=== PATIENT | female | born 1945 ===

== ENCOUNTER 2017-09-15 10:25 | Emergency (ER) | payer MEDICARE ==
[2017-09-15 10:26] VITALS: BMI 26.7
[2017-09-15 12:53] LABS: BASO # 0.1 K/uL (0.0-0.2); BASO % 0.9 % (0.0-2.0); EOS % 0.9 % (0.0-4.0); HEMATOCRIT 25.2 % (34.0-47.0); LYMPH # 2.2 K/uL (1.0-4.3); LYMPH % 41.6 % (20.0-40.0); MEAN CELL VOLUME 65.6 fl (81.0-99.0); MEAN CORPUSCULAR HEMOGLOBIN 20.7 pg (27.0-31.0); MEAN CORPUSCULAR HGB CONC 31.5 g/dL (33.0-37.0); MEAN PLATELET VOLUME 7.7 fl (7.2-11.7); MONO # 0.3 K/uL (0.0-0.8); MONO % 5.7 % (0.0-10.0); NEUT # 2.7 K/uL (1.8-7.0); NEUT % 50.9 % (50.0-75.0); NRBC % 0.1 % (0.0-0.0); RED CELL DISTRIBUTION WIDTH 16.6 % (11.5-14.5); WHITE BLOOD COUNT 5.4 K/uL (4.8-10.8)
[2017-09-15 13:01] LABS: ALB/GLOB RATIO 1.5 (1.0-2.1); ALKALINE PHOSPHATASE 79 U/L (38-126); ALT/SGPT 34 U/L (9-52); AST/SGOT 28 U/L (14-36); BILIRUBIN,TOTAL 0.3 mg/dl (0.2-1.3); BLOOD UREA NITROGEN 25 mg/dl (7-17); CALCIUM 9.2 mg/dL (8.4-10.2); CARBON DIOXIDE 26 mmol/L (22-30); CHLORIDE 106 mmol/L (98-107); GFR AFRICAN-AMERICAN > 60; GLUCOSE,RANDOM 96 mg/dL (65-105); POTASSIUM 3.8 MMOL/L (3.6-5.0); SODIUM 141 mmol/l (132-148)
[2017-09-15 13:04] LABS: PARTIAL THROMBOPLASTIN TIME 25.2 Seconds (25.6-37.1)
--- NOTE | 2017-09-15 13:34 | US ---
HISTORY: Left lower extremity pain 3 days duration PRIORS: None. FINDINGS: 2-D, color and duplex Doppler analysis of the lower extremity venous circulation using routine protocol from the femoral veins through the popliteal veins. Venous compressibility: Normal. Flow and augmentation patterns: Normal. Visualized veins upper third of calf: Normal. Rodriguez cyst: None. IMPRESSION: No sonographic or Doppler evidence for DVT in left lower extremity.
--- NOTE | 2017-09-15 13:42 | ED PDOC ---
HPI: General Adult Time Seen by Provider: 09/15/17 11:00 Chief Complaint (Nursing): Lower Extremity Problem/Injury History Per: Patient Additional Complaint(s): Pt. states for the past 3 days she's had L calf pain and swelling. She was seen today by Dr. Gallo and instructed to come to ED for venous duplex US to r/o DVT. Denies trauma, rash, fever, SOB, palpitations, chest pain, hx of DVT, cough , recent prolonged immobilization. Past Medical History Reviewed: Historical Data, Nursing Documentation, Vital Signs Vital Signs: Last Vital Signs Temp 97.7 F 09/15/17 15:59 Pulse 78 09/15/17 15:59 Resp 19 09/15/17 15:59 BP 128/76 09/15/17 15:59 Pulse Ox 98 09/15/17 15:59 - Medical History PMH: CVA (12/2015), HTN - Family History Family History: States: No Known Family Hx - Home Medications Home Medications: Ambulatory Orders Medication Instructions Recorded Atorvastatin [Lipitor] 80 mg PO DAILY 01/19/17 Clopidogrel [Plavix] 75 mg PO DAILY 01/19/17 clonazePAM [Klonopin] 0.5 mg PO HS PRN 01/19/17 Alendronate [Fosamax] 70 mg PO FR 09/15/17 Multivitamin [Multi-Vitamin Daily] 1 tab PO DAILY 09/15/17 PARoxetine [Paxil] 20 mg PO DAILY 09/15/17 - Allergies Allergies/Adverse Reactions: Allergies Allergy/AdvReac Type Severity Reaction Status Date / Time No Known Allergies Allergy Verified 09/15/17 11:00 Review of Systems ROS Statement: Except As Marked, All Systems Reviewed And Found Negative Musculoskeletal: Positive for: Leg Pain Physical Exam - Reviewed Nursing Documentation Reviewed: Yes Vital Signs Reviewed: Yes - Physical Exam Appears: Positive for: Well, Non-toxic, No Acute Distress Head Exam: Positive for: ATRAUMATIC, NORMAL INSPECTION, NORMOCEPHALIC Skin: Positive for: Normal Color, Warm. Negative for: Rash Eye Exam: Positive for: EOMI, Normal appearance, PERRL ENT: Positive for: Normal ENT Inspection Neck: Positive for: Normal, Painless ROM Cardiovascular/Chest: Positive for: Regular Rate, Rhythm Respiratory: Positive for: CNT, Normal Breath Sounds Pulses-Dorsalis Pedis (L): 2+ Pulses-Dorsalis Pedis (R): 2+ Gastrointestinal/Abdominal: Positive for: Normal Exam, Bowel Sounds, Soft. Negative for: Tenderness Back: Positive for: Normal Inspection Rectal: Positive for: Normal Exam, Rectal Tone Is: (intact), Other (Peachy RN present as flow match sofa cutter during rectal exam. ). Negative for: Black Stool, Blood Streaked Stool, Hemorrhoids, Mass, Tenderness Extremity: Positive for: Calf Tenderness (L calf tenderness and mild swelling; negative Juan Pablo's sign) Neurologic/Psych: Positive for: Alert, Oriented. Negative for: Aphasia, Facial Droop - Laboratory Results Result Diagrams: 09/15/17 12:45 09/15/17 12:45 - ECG O2 Sat by Pulse Oximetry: 96 - Progress ED Course And Treament: Case d/w Dr. Mcnulty who states her last HgB that he has from her was from and was 11.5. He requests that pt. be admitted. Case d/w Dr. Raya, hospitalist, who states pt. does not meet criteria for admission as she is asymptomatic. Case d/w Dr. Mcnulty and states pt. can f/u in his office tomorrow. Case d/w Dr. Tran prior to discharge. Pt. and pt.'s son informed of plan and agrees. Disposition - Clinical Impression Clinical Impression: Anemia, Leg pain - Patient ED Disposition Is Patient to be Admitted: No - Disposition Referrals: Rudy Mcnulty MD [Family Provider] - [facility] [Outside] Disposition: Routine/Home Disposition Time: 15:30 Condition: STABLE Additional Instructions: FOLLOW UP WITH DR. MCNULTY TOMORROW WITHOUT FAIL. Instructions: Anemia (ED), Leg Pain (ED) Forms: [place] ([place] Citizen) Print Language: [place]
[2017-09-15 16:00] VITALS: BP 128/76; PULSE 78; RESP 19; TEMP 97.7
[2017-09-15 19:45] VITALS: O2SAT 96
--- NOTE | 2017-09-16 07:37 | CARD ---
APPROVED REPORT EKG Measurement Heart [id number] [id number] <Conclusion> Sinus rhythm with 1st degree AV block Otherwise normal ECG
== END 2017-09-15 16:01 | disposition home or self-care (01) ==
LOC: H.ER 10:25
DX: M79.605 Pain in left leg (principal); D64.9 Anemia, unspecified; I10 Essential (primary) hypertension; Z86.73 Personal history of transient ischemic attack (TIA), and cerebral infarction without residual deficits
CPT/HCPCS: 80053; 83880; 85025; 85610; 85730; 93005; 93971; 99282; G0328

== ENCOUNTER 2018-01-11 10:21 | Observation (INO) | payer MEDICARE ==
[2018-01-11 10:21] VITALS: BMI 21.2
[2018-01-11 11:28] LABS: BASO % 0.7 % (0.0-2.0); EOS # 0.1 K/uL (0.0-0.7); EOS % 1.2 % (0.0-4.0); HEMOGLOBIN 12.6 g/dL (12.0-16.0); LYMPH # 2.6 K/uL (1.0-4.3); LYMPH % 51.4 % (20.0-40.0); MEAN CELL VOLUME 81.2 fl (81.0-99.0); MEAN CORPUSCULAR HEMOGLOBIN 27.5 pg (27.0-31.0); MEAN CORPUSCULAR HGB CONC 33.9 g/dL (33.0-37.0); MEAN PLATELET VOLUME 7.6 fl (7.2-11.7); MONO # 0.4 K/uL (0.0-0.8); MONO % 8.6 % (0.0-10.0); NEUT # 1.9 K/uL (1.8-7.0); NEUT % 38.1 % (50.0-75.0); RBC 4.59 Mil/uL (3.80-5.20); WHITE BLOOD COUNT 5.1 K/uL (4.8-10.8)
--- NOTE | 2018-01-11 11:33 | RAD ---
HISTORY: Code Stroke COMPARISON: Comparison chest dated 01/19/2017. FINDINGS: LUNGS: Suspect minimal bibasilar PLEURA: No significant pleural effusion identified, no pneumothorax apparent. CARDIOVASCULAR: Heart size is upper limits of normal/borderline enlarged. Aorta is slightly ectatic and uncoiled with calcification of the aortic knob. Re- demonstrated is a small cylindrical shaped radiopaque density overlying the right cardiac silhouette unchanged from prior study OSSEOUS STRUCTURES: Mild multilevel degenerative spondylosis of the thoracic spine. VISUALIZED UPPER ABDOMEN: Normal. OTHER FINDINGS: None. IMPRESSION: Atelectasis suspect minimal bibasilar atelectasis
--- NOTE | 2018-01-11 11:40 | CT ---
PROCEDURE: CT HEAD WITHOUT CONTRAST. HISTORY: Right leg numbness. COMPARISON: Comparison made with CT scan brain 11/15/2016. TECHNIQUE: Axial computed tomography images were obtained through the head/brain without intravenous contrast. Radiation dose: Total exam DLP = 718.65 mGy-cm. This CT exam was performed using one or more of the following dose reduction techniques: Automated exposure control, adjustment of the mA and/or kV according to patient size, and/or use of iterative reconstruction technique. FINDINGS: HEMORRHAGE: No acute parenchymal, subarachnoid or extra-axial hemorrhage. BRAIN: Re- demonstrated is a large wedge-shaped area of partially cystic encephalomalacia left posterior frontoparietal and left posterior temporal regions consistent with chronic left MCA territory branch infarct. Overall the appearance of the infarct is on change from prior exam. There is also mild diffuse/ confluent chronic white matter ischemic changes with scattered with chronic appearing subcortical white matter ischemic changes. . Additionally, there appear to be a few scattered chronic bilateral basal nuclei lacunar type infarcts as well. Note that the possibility of a small hyperacute infarct cannot be excluded. There is ex vacuo dilatation of the left lateral ventricle particularly the posterior body, atrium and to a lesser degree temporal horn related to at aforementioned chronic infarct. . Mild -moderate generalized volume loss not withstanding above-mentioned infarct and associated ex vacuo dilatation of the left lateral ventricle. VENTRICLES: No obstructive hydrocephalus. CALVARIUM: There are no acute calvarial fractures. PARANASAL SINUSES: Unremarkable as visualized. No significant inflammatory changes. MASTOID AIR CELLS: Unremarkable as visualized. No inflammatory changes. OTHER FINDINGS: None. IMPRESSION: No acute intracranial hemorrhage. Stable larger old chronic left MCA a territory branch infarct with mild ex vacuo dilatation of the left lateral ventricle as detailed above. Note that the possibility of a superimposed small acute infarct cannot be excluded based on this study. Clinical correlation recommended. Mild chronic white matter ischemic changes. Additionally, there also appear to be a few small chronic appearing bilateral basal nuclei lacunar type infarcts. Mild moderate generalized volume loss.
[2018-01-11 11:44] LABS: ALB/GLOB RATIO 1.3 (1.0-2.1); ALBUMIN 4.1 g/dL (3.5-5.0); ALT/SGPT 28 U/L (9-52); AST/SGOT 40 U/L (14-36); BLOOD UREA NITROGEN 31 mg/dl (7-17); CALCIUM 9.2 mg/dL (8.4-10.2); GFR AFRICAN-AMERICAN > 60; GFR NON-AFRICAN AMERICAN > 60; HDL CHOLESTEROL 48 MG/DL (30-70)
[2018-01-11 11:52] LABS: PARTIAL THROMBOPLASTIN TIME 26.5 Seconds (25.6-37.1); PROTHROMBIN TIME 10.7 Seconds (9.8-13.1)
[2018-01-11 11:55] LABS: LDL CHOLESTEROL 115 mg/dL (0-129)
[2018-01-11] MEDS: Sodium Chloride 0.9% 1,000 ML IV SCH (12:02)
--- NOTE | 2018-01-11 12:56 | ED PDOC ---
HPI:STROKE - Time Time: 11:45 - Historian Historian: Patient, Family, Major Account Manager - Chief Complaint Chief Complaint: Numbness, Slurred speech, Mental status change, Confusion - Onset Date: 01/08/18 Onset: Hours (3+) - Timing Timing: Intermittent - Location Location: Difficult to localize Locate right:: Lower extremity - Severity of pain Maximum severity:: Moderate Severity Current: Moderate - TPA Positive for Contraindication: Yes Reason tPA is not being Administered: symptoms ongoing 3+ days - Notes: Notes:: 72yo female presents w son who states she has noted right leg numbness since thursday associated w headache and mild low back pain. Denies falls, chest pain, fever or abd pain. Also family notes lethargy and worsening confusion. Patient had a large stroke several years ago for which she has R sided weakness. Denies fever, vomiting. NIHSS Stroke Scale - Date/Time Evaluation Performed Date Performed: 01/11/18 Time Performed: 11:45 When Was NIHSS Performed: Baseline - How Severe is the Stroke Level of Consciousness: 0=Alert LOC to Questions: 0=Both comments correct LOC to commands: 0=Obeys both correctly Best Gaze: 0=Normal Visual: 0=No visual loss Facial: 0=Normal Motor Arm - Left: 0=No drift Motor Arm - Right: 1=Drift noted before 10 sec Motor Leg - Left: 0=No drift Motor Leg - Right: 1=Drift before 5 sec Limb Ataxia: 0=Absent Sensory: 1=Mild to moderate loss Best Language: 0=No aphasia Dysarthia: 0=Normal articulation Extinction & Inattention (Neglect): 0=Normal, no object Score: 3 Past Medical History Vital Signs: Last Vital Signs Temp 97 F L 01/11/18 10:23 Pulse 60 01/11/18 11:53 Resp 16 01/11/18 11:53 BP 131/75 01/11/18 11:53 Pulse Ox 99 01/11/18 11:53 - Medical History PMH: Anemia, CVA (12/2015), HTN - Family History Family History: States: Unknown Family Hx - Home Medications Home Medications: Ambulatory Orders Medication Instructions Recorded Atorvastatin [Lipitor] 80 mg PO DAILY 01/19/17 Clopidogrel [Plavix] 75 mg PO DAILY 01/19/17 clonazePAM [Klonopin] 0.5 mg PO HS PRN 01/19/17 PARoxetine [Paxil] 20 mg PO DAILY 09/15/17 Acetaminophen with Codeine 1 tab PO Q6H PRN 01/11/18 [Tylenol with Codeine #3 Tablet] - Allergies Allergies/Adverse Reactions: Allergies Allergy/AdvReac Type Severity Reaction Status Date / Time No Known Allergies Allergy Verified 09/15/17 11:00 - Laboratory Results Result Diagrams: 01/11/18 11:15 01/11/18 11:15 - ECG O2 Sat by Pulse Oximetry: 99 Medical Decision Making Medical Decision Making: Time: 11:31 Chest X-Ray FINDINGS: LUNGS: Suspect minimal bibasilar PLEURA: No significant pleural effusion identified, no pneumothorax apparent. CARDIOVASCULAR: Heart size is upper limits of normal/borderline enlarged. Aorta is slightly ectatic and uncoiled with calcification of the aortic knob. Re- demonstrated is a small cylindrical shaped radiopaque density overlying the right cardiac silhouette unchanged from prior study OSSEOUS STRUCTURES: Mild multilevel degenerative spondylosis of the thoracic spine. VISUALIZED UPPER ABDOMEN: Normal. OTHER FINDINGS: None. IMPRESSION: Atelectasis suspect minimal bibasilar atelectasis Time: 11:38 CT Head without Contrast FINDINGS: HEMORRHAGE: No acute parenchymal, subarachnoid or extra-axial hemorrhage. BRAIN: Re- demonstrated is a large wedge-shaped area of partially cystic encephalomalacia left posterior frontoparietal and left posterior temporal regions consistent with chronic left MCA territory branch infarct. Overall the appearance of the infarct is on change from prior exam. There is also mild diffuse/ confluent chronic white matter ischemic changes with scattered with chronic appearing subcortical white matter ischemic changes. . Additionally, there appear to be a few scattered chronic bilateral basal nuclei lacunar type infarcts as well. Note that the possibility of a small hyperacute infarct cannot be excluded. There is ex vacuo dilatation of the left lateral ventricle particularly the posterior body, atrium and to a lesser degree temporal horn related to at aforementioned chronic infarct. . Mild -moderate generalized volume loss not withstanding above-mentioned infarct and associated ex vacuo dilatation of the left lateral ventricle. VENTRICLES: No obstructive hydrocephalus. CALVARIUM: There are no acute calvarial fractures. PARANASAL SINUSES: Unremarkable as visualized. No significant inflammatory changes. MASTOID AIR CELLS: Unremarkable as visualized. No inflammatory changes. OTHER FINDINGS: None. IMPRESSION: No acute intracranial hemorrhage. Stable larger old chronic left MCA a territory branch infarct with mild ex vacuo dilatation of the left lateral ventricle as detailed above. Note that the possibility of a superimposed small acute infarct cannot be excluded based on this study. Clinical correlation recommended. Mild chronic white matter ischemic changes. Additionally, there also appear to be a few small chronic appearing bilateral basal nuclei lacunar type infarcts. Mild moderate generalized volume loss Disposition - Disposition
--- NOTE | 2018-01-11 13:17 | CARD ---
APPROVED REPORT EKG Measurement Heart [id number] <Conclusion> Sinus rhythm with 1st degree AV block Otherwise normal ECG
[2018-01-11] MEDS ORDERED: Acetaminophen-Codeine 300/30 mg Tab PO PRN (14:26)
[2018-01-11] MEDS ORDERED: Gadodiamide 287 MG/ML VIAL (15ML) IV ONE (14:41)
--- NOTE | 2018-01-11 16:25 | MRI ---
PROCEDURE: MRI lumbar spine 01/11/2018 HISTORY: Sciatica. COMPARISON: Comparison made with prior lumbar spine radiographs 08/18/2017 TECHNIQUE: Multiecho multiplanar sequences were performed through the lumbar spine with and without the use of intravenous contrast. . FINDINGS: No acute compression fractures no retropulsed fragments. The vertebral bodies exhibit normal stature. Vertebral bodies and facets normally aligned No evidence of abnormal enhancement within the disc spaces to suggest discitis osteomyelitis. No evidence of abnormal enhancement within or along the surfaces of the visualized lower thoracic spinal cord/conus or nerve roots of the cauda equina. Mild multilevel degenerative spondylosis. L1-2: Mild disc desiccation. Disc space height maintained. Minimal broad-based bulge of the posterior annulus is present. The facet joints also mildly hypertrophic. Central canal and exit foramina appear adequate. L2-3: There is mild disc desiccation. Minimal broad-based bulge of the posterior annulus is present and results in some flattening of the ventral surface of thecal sac. Overall central canal measured at midline is adequate. Facets are mildly hypertrophic. Central canal and exit foramina adequate. L3-4: There is mild disc desiccation. Disc space height relatively maintained. Small asymmetric disc bulge larger on the left than right with extension into the proximal inferior margins of both exit foramina more so on the left. There is flattening of the ventral surface of the thecal sac and mild left lateral recess narrowing. Slight posterior displacement of the nearly exiting left-sided intrathecal L4 nerve root. Central canal appears marginal to adequate. Facet joints are mildly hypertrophic. Exit foramina are also adequate. L4-5: There is mild age related disc desiccation. Disc space height maintained. Minimal broad-based bulge of the posterior annulus extends slightly into the proximal inferior margins of both exit foramina more so on the left side. The facets are hypertrophic. There is some flattening of the ventral surface of thecal sac however the overall central canal does appear adequate. Exit foramina are also adequate. L5-S1: There is mild age related disc desiccation and posterior disc space narrowing. Small central and bilateral disc protrusion with minimal inferior extension of disc material just to the right of midline over short distance dorsal to the superior right parasagittal core of the S1 segment. Disc also extends slightly into the proximal inferior margins of both exit foramina. Disc reaches the ventral surfaces of the thecal sac and right sided S1 nerve root just as it exits the thecal sac as well however the overall central canal is quite adequate. The facet joints are hypertrophic. Exit foramina are also adequate despite encroaching disc and overgrown facets. 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 OTHER FINDINGS: Note made of a distended urinary bladder. Parapelvic renal cyst left kidney with an extrarenal pelvis IMPRESSION: No acute fractures. Minor multilevel degenerative spondylosis as above.
--- NOTE | 2018-01-11 17:33 | CP.PCM.HP ---
History of Present Illness - History of Present Illness History of Present Illness: 72 yo female with history of CVA 2yrs ago came in complaining of pain on the right lower back region radiating to the back of the right leg since 3 days ago. Pain was on and off initiated when rising up from sitting position. There was also some mention of numbness associated with the pain but denied weakness. Over a year back, patient had CVA presenting with numbness of the left arm. Present on Admission - Present on Admission Any Indicators Present on Admission: No History of DVT/PE: No History of Uncontrolled Diabetes: No Urinary Catheter: No Decubitus Ulcer Present: No Review of Systems - Review of Systems All systems: reviewed and no additional remarkable complaints except (aside from those mentioned above, 12 point system review were negative by me) Past Patient History - Infectious Disease Hx of Infectious Diseases: None - Tetanus Immunizations Tetanus Immunization: Unknown - Past Medical History & Family History Past Family History: Reviewed and not pertinent - Past Social History Smoking Status: Never Smoked Alcohol: None Home Situation {Lives}: With Family - CARDIAC Hx Hypertension: Yes - PULMONARY Hx Respiratory Disorders: No - NEUROLOGICAL Hx Neurological Disorder: Yes HX Cerebrovascular Accident: Yes (dec 2015) - RENAL Hx Chronic Kidney Disease: No - ENDOCRINE/METABOLIC Hx Endocrine Disorders: No - HEMATOLOGICAL/ONCOLOGICAL Hx Anemia: Yes - INTEGUMENTARY Hx Dermatological Problems: No - MUSCULOSKELETAL/RHEUMATOLOGICAL Hx Musculoskeletal Disorders: No - GASTROINTESTINAL Other/Comment: bladder surgery - GENITOURINARY/GYNECOLOGICAL Hx Genitourinary Disorders: No - PSYCHIATRIC Hx Substance Use: No - SURGICAL HISTORY Hx Surgeries: Yes Other/Comment: valve closure. lt shoulder - ANESTHESIA Hx Anesthesia: Yes Hx Anesthesia Reactions: No Meds Allergies/Adverse Reactions: Allergies Allergy/AdvReac Type Severity Reaction Status Date / Time No Known Allergies Allergy Verified 09/15/17 11:00 Physical Exam - Constitutional Appears: No Acute Distress - Head Exam Head Exam: absent: ATRAUMATIC - Eye Exam Eye Exam: absent: Scleral icterus - ENT Exam ENT Exam: Mucous Membranes Moist - Neck Exam Neck exam: Negative for: Meningismus - Respiratory Exam Respiratory Exam: absent: Rhonchi, Wheezes, Respiratory Distress - Cardiovascular Exam Cardiovascular Exam: REGULAR RHYTHM, +S1, +S2 - GI/Abdominal Exam GI & Abdominal Exam: Soft. absent: Tenderness - Rectal Exam Rectal Exam: Deferred - Back Exam Back exam: paraspinal tenderness (tenderness on right paralumbar area) - Neurological Exam Neurological exam: Alert, Oriented x3 - Psychiatric Exam Psychiatric exam: Normal Affect - Skin Skin Exam: Dry, Intact Results - Vital Signs Recent Vital Signs: Last Vital Signs Temp 97 F L 01/11/18 10:23 Pulse 60 01/11/18 11:53 Resp 16 01/11/18 11:53 BP 131/75 01/11/18 11:53 Pulse Ox 99 01/11/18 13:28 - Labs Result Diagrams: 01/11/18 11:15 01/11/18 11:15 Labs: Laboratory Results - last 24 hr 01/11/18 01/11/18 01/11/18 11:05 11:15 11:15 WBC 5.1 RBC 4.59 Hgb 12.6 D Hct 37.3 MCV 81.2 D MCH 27.5 MCHC 33.9 RDW 19.0 H Plt Count 239 MPV 7.6 Neut % (Auto) 38.1 L Lymph % (Auto) 51.4 H [place] % (Auto) 8.6 Eos % (Auto) 1.2 Baso % (Auto) 0.7 Neut # (Auto) 1.9 Lymph # (Auto) 2.6 [place] # (Auto) 0.4 Eos # (Auto) 0.1 Baso # (Auto) 0.0 PT INR APTT Sodium 142 Potassium 3.8 Chloride 106 Carbon Dioxide 26 Anion Gap 14 BUN 31 H Creatinine 0.6 L Est GFR ( Amer) > 60 Est GFR (Non-Af Amer) > 60 POC Glucose (mg/dL) 99 Random Glucose 104 Hemoglobin A1c Calcium 9.2 Total Bilirubin 0.5 AST 40 H D ALT 28 Alkaline Phosphatase 61 Troponin I < 0.0120 Total Protein 7.1 Albumin 4.1 Globulin 3.1 Albumin/Globulin Ratio 1.3 Triglycerides 139 D Cholesterol 201 H LDL Cholesterol Direct 115 HDL Cholesterol 48 Blood Type Antibody Screen BBK History Checked 01/11/18 01/11/18 01/11/18 11:15 11:15 11:15 WBC RBC Hgb Hct MCV MCH MCHC RDW Plt Count MPV Neut % (Auto) Lymph % (Auto) [place] % (Auto) Eos % (Auto) Baso % (Auto) Neut # (Auto) Lymph # (Auto) [place] # (Auto) Eos # (Auto) Baso # (Auto) PT 10.7 INR 1.0 APTT 26.5 Sodium Potassium Chloride Carbon Dioxide Anion Gap BUN Creatinine Est GFR ( Amer) Est GFR (Non-Af Amer) POC Glucose (mg/dL) Random Glucose Hemoglobin A1c 6.2 Calcium Total Bilirubin AST ALT Alkaline Phosphatase Troponin I Total Protein Albumin Globulin Albumin/Globulin Ratio Triglycerides Cholesterol LDL Cholesterol Direct HDL Cholesterol Blood Type AB POSITIVE Antibody Screen Negative BBK History Checked Patient has bt 01/11/18 16:49 WBC RBC Hgb Hct MCV MCH MCHC RDW Plt Count MPV Neut % (Auto) Lymph % (Auto) [place] % (Auto) Eos % (Auto) Baso % (Auto) Neut # (Auto) Lymph # (Auto) [place] # (Auto) Eos # (Auto) Baso # (Auto) PT INR APTT Sodium Potassium Chloride Carbon Dioxide Anion Gap BUN Creatinine Est GFR ( Amer) Est GFR (Non-Af Amer) POC Glucose (mg/dL) 141 H Random Glucose Hemoglobin A1c Calcium Total Bilirubin AST ALT Alkaline Phosphatase Troponin I Total Protein Albumin Globulin Albumin/Globulin Ratio Triglycerides Cholesterol LDL Cholesterol Direct HDL Cholesterol Blood Type Antibody Screen BBK History Checked Assessment & Plan - Assessment and Plan (Free Text) Assessment: 72 yo female with history of CVA 2yrs ago came in complaining of pain on the right lower back region radiating to the back of the right leg since 3 days ago. Pain was on and off initiated when rising up from sitting position. There was also some mention of numbness associated with the pain but denied weakness. Over a year back, patient had CVA presenting with numbness of the left arm. 1. Lumbar Spondylosis with Radiculopathy MRI of Lumbar Spine: multilevel degenerative spondylosis neuro consult with Dr Valerio PT evaluation and management 2. History of CVA continue Plavix and statin 3. DVT prophylaxis on Lovenox 40mg SC daily
[2018-01-11] MEDS ORDERED: Pneumococcal 23-Valent Vaccine IM ONE (18:40)
[2018-01-12] MEDS: Sodium Chloride 0.9% 1,000 ML IV SCH ×2 (00:33→08:39)
[2018-01-12 05:56] LABS: BASO % 0.7 % (0.0-2.0); EOS # 0.1 K/uL (0.0-0.7); EOS % 1.9 % (0.0-4.0); HEMOGLOBIN 12.5 g/dL (12.0-16.0); LYMPH # 2.7 K/uL (1.0-4.3); LYMPH % 49.3 % (20.0-40.0); MEAN CELL VOLUME 81.6 fl (81.0-99.0); MEAN CORPUSCULAR HEMOGLOBIN 27.7 pg (27.0-31.0); MEAN PLATELET VOLUME 7.5 fl (7.2-11.7); MONO # 0.4 K/uL (0.0-0.8); NEUT # 2.2 K/uL (1.8-7.0); NEUT % 40.1 % (50.0-75.0); NRBC % 0.2 % (0.0-0.0); RBC 4.51 Mil/uL (3.80-5.20); RED CELL DISTRIBUTION WIDTH 17.5 % (11.5-14.5); WHITE BLOOD COUNT 5.5 K/uL (4.8-10.8)
[2018-01-12 06:09] LABS: BLOOD UREA NITROGEN 16 mg/dl (7-17); CALCIUM 8.7 mg/dL (8.4-10.2); GFR AFRICAN-AMERICAN > 60; GFR NON-AFRICAN AMERICAN > 60
[2018-01-12] MEDS ORDERED: Enoxaparin 40 mg Syringe SC SCH (09:00)
[2018-01-12] MEDS ORDERED: Pantoprazole 40 mg EC Tab PO SCH (09:00)
--- NOTE | 2018-01-12 13:55 | CP.PCM.CON ---
History of Present Illness - History of Present Illness History of Present Illness: Mrs. Yoo is a 72-year-old woman with a past medical history of previous left MCA stroke (two years ago), who presented to the ED complaining of recurrent right leg pain that starts in the back and is felt down the back of the thigh, and into the back of her calf. It feels like a sudden, sharp, stabbing pain that can be severe at times. Currently, the pain is a 4/10 in severity. MRI of the lumbar spine showed mild disc disease. She denied urinary incontinence, has difficulty with ambulation from previous stroke, but no new weakness. Review of Systems - Review of Systems All systems: reviewed and no additional remarkable complaints except Past Patient History - Infectious Disease Hx of Infectious Diseases: None - Tetanus Immunizations Tetanus Immunization: Unknown - Past Medical History & Family History Past Family History: Reviewed and not pertinent - Past Social History Smoking Status: Never Smoked Alcohol: None Home Situation {Lives}: With Family - CARDIAC Hx Hypertension: Yes - PULMONARY Hx Respiratory Disorders: No - NEUROLOGICAL Hx Neurological Disorder: Yes HX Cerebrovascular Accident: Yes (dec 2015) - HEENT Hx HEENT Problems: Yes Other/Comment: Right eye sx - RENAL Hx Chronic Kidney Disease: No - ENDOCRINE/METABOLIC Hx Endocrine Disorders: No - HEMATOLOGICAL/ONCOLOGICAL Hx Anemia: Yes - INTEGUMENTARY Hx Dermatological Problems: No - MUSCULOSKELETAL/RHEUMATOLOGICAL Hx Musculoskeletal Disorders: No - GASTROINTESTINAL Other/Comment: bladder surgery - GENITOURINARY/GYNECOLOGICAL Hx Genitourinary Disorders: No - PSYCHIATRIC Hx Substance Use: No - SURGICAL HISTORY Hx Surgeries: Yes Other/Comment: valve closure. lt shoulder - ANESTHESIA Hx Anesthesia: Yes Hx Anesthesia Reactions: No Meds Allergies/Adverse Reactions: Allergies Allergy/AdvReac Type Severity Reaction Status Date / Time No Known Allergies Allergy Verified 09/15/17 11:00 - Medications Medications: Current Medications Acetaminophen/Codeine Phosphate (Tylenol/Codeine 300 Mg/30 Mg) 1 tab PO Q6H PRN PRN Reason: Pain, severe (8-10) Last Admin: 01/12/18 00:31 Dose: 1 tab Atorvastatin Calcium (Lipitor) 80 mg PO DAILY [facility] Last Admin: 01/12/18 08:40 Dose: 80 mg Clonazepam (Klonopin) 0.5 mg PO HS PRN PRN Reason: Anxiety Clopidogrel Bisulfate (Plavix) 75 mg PO DAILY [facility] Last Admin: 01/12/18 08:39 Dose: 75 mg Docusate Sodium (Colace) 100 mg PO BID PRN PRN Reason: Constipation Enoxaparin Sodium (Lovenox) 40 mg SC DAILY [facility] PRN Reason: Protocol Last Admin: 01/12/18 08:39 Dose: 40 mg Sodium Chloride (Sodium Chloride 0.9%) 1,000 mls @ 100 mls/hr IV .Q10H [facility] Last Admin: 01/12/18 08:39 Dose: 100 mls/hr Pantoprazole Sodium (Protonix Ec Tab) 40 mg PO DAILY [facility] Last Admin: 01/12/18 08:39 Dose: 40 mg Paroxetine HCl (Paxil) 20 mg PO DAILY [facility] Last Admin: 01/12/18 08:39 Dose: 20 mg Physical Exam - Constitutional Appears: Well - Head Exam Head Exam: ATRAUMATIC, NORMAL INSPECTION, NORMOCEPHALIC - Eye Exam Eye Exam: EOMI, Normal appearance, PERRL - Cardiovascular Exam Cardiovascular Exam: REGULAR RHYTHM, +S1, +S2 - GI/Abdominal Exam GI & Abdominal Exam: Normal Bowel Sounds, Soft. absent: Tenderness - Rectal Exam Rectal Exam: Deferred - Extremities Exam Extremities exam: Positive for: normal inspection - Neurological Exam Neurological exam: Abnormal Gait, Alert, CN II-XII Intact, Oriented x3 Additional comments: Reflexes are brisk on the right L4/5 and C5/6 with normal sensation throughout. Results - Vital Signs Recent Vital Signs: Last Vital Signs Temp 97.5 F L 01/12/18 13:27 Pulse 76 01/12/18 13:27 Resp 20 01/12/18 13:27 BP 132/81 01/12/18 13:27 Pulse Ox 100 01/12/18 13:27 - Labs Result Diagrams: 01/12/18 04:25 01/12/18 04:25 Labs: Laboratory Results - last 24 hr 01/11/18 01/11/18 01/11/18 11:15 16:49 22:02 WBC RBC Hgb Hct MCV MCH MCHC RDW Plt Count MPV Neut % (Auto) Lymph % (Auto) [place] % (Auto) Eos % (Auto) Baso % (Auto) Neut # (Auto) Lymph # (Auto) [place] # (Auto) Eos # (Auto) Baso # (Auto) Sodium Potassium Chloride Carbon Dioxide Anion Gap BUN Creatinine Est GFR ( Amer) Est GFR (Non-Af Amer) POC Glucose (mg/dL) 141 H 97 Random Glucose Hemoglobin A1c 6.2 Calcium TSH 3rd Generation 01/12/18 01/12/18 01/12/18 04:25 04:25 05:54 WBC 5.5 RBC 4.51 Hgb 12.5 Hct 36.8 MCV 81.6 MCH 27.7 MCHC 34.0 RDW 17.5 H Plt Count 238 MPV 7.5 Neut % (Auto) 40.1 L Lymph % (Auto) 49.3 H [place] % (Auto) 8.0 Eos % (Auto) 1.9 Baso % (Auto) 0.7 Neut # (Auto) 2.2 Lymph # (Auto) 2.7 [place] # (Auto) 0.4 Eos # (Auto) 0.1 Baso # (Auto) 0.0 Sodium 143 Potassium 4.3 Chloride 107 Carbon Dioxide 29 Anion Gap 11 BUN 16 Creatinine 0.6 L Est GFR ( Amer) > 60 Est GFR (Non-Af Amer) > 60 POC Glucose (mg/dL) 79 Random Glucose 97 Hemoglobin A1c Calcium 8.7 TSH 3rd Generation 1.08 01/12/18 11:58 WBC RBC Hgb Hct MCV MCH MCHC RDW Plt Count MPV Neut % (Auto) Lymph % (Auto) [place] % (Auto) Eos % (Auto) Baso % (Auto) Neut # (Auto) Lymph # (Auto) [place] # (Auto) Eos # (Auto) Baso # (Auto) Sodium Potassium Chloride Carbon Dioxide Anion Gap BUN Creatinine Est GFR ( Amer) Est GFR (Non-Af Amer) POC Glucose (mg/dL) 96 Random Glucose Hemoglobin A1c Calcium TSH 3rd Generation Assessment & Plan (1) Right leg pain Assessment and Plan: This is likely neuropathic pain as it is described and could be due to the previous stroke or other due to mild nerve root compression at the lumbar region. I recommend starting Neurontin at 300 mg TID and follow up with outpatient neurology. Thank you. Status: Acute Priority: High
[2018-01-12 15:47] VITALS: BP 132/73; PULSE 69; RESP 18; TEMP 98.4; O2SAT 97
--- NOTE | 2018-01-12 16:13 | CP.PCM.DIS ---
Provider - Provider Date of Admission: 01/11/18 12:53 Attending physician: Alphonso Raya MD Consults: Dr Valerio Time Spent in preparation of Discharge (in minutes): 25 Diagnosis - Discharge Diagnosis (1) Right leg pain Status: Acute Priority: High Comment: neuropathic pain from Lumbar Spondylosis. Neurontin 300mg PO TID. lion le consult with Dr Valerio (2) History of CVA (cerebrovascular accident) Status: Chronic Comment: on Plavix and statin Hospital Course - Lab Results Lab Results: Most Recent Lab Values WBC 5.5 K/uL (4.8-10.8) 01/12/18 04:25 RBC 4.51 Mil/uL (3.80-5.20) 01/12/18 04:25 Hgb 12.5 g/dL (12.0-16.0) 01/12/18 04:25 Hct 36.8 % (34.0-47.0) 01/12/18 04:25 MCV 81.6 fl (81.0-99.0) 01/12/18 04:25 MCH 27.7 pg (27.0-31.0) 01/12/18 04:25 MCHC 34.0 g/dL (33.0-37.0) 01/12/18 04:25 RDW 17.5 % (11.5-14.5) H 01/12/18 04:25 Plt Count 238 K/uL (130-400) 01/12/18 04:25 MPV 7.5 fl (7.2-11.7) 01/12/18 04:25 Neut % (Auto) 40.1 % (50.0-75.0) L 01/12/18 04:25 Lymph % (Auto) 49.3 % (20.0-40.0) H 01/12/18 04:25 Harper % (Auto) 8.0 % (0.0-10.0) 01/12/18 04:25 Eos % (Auto) 1.9 % (0.0-4.0) 01/12/18 04:25 Baso % (Auto) 0.7 % (0.0-2.0) 01/12/18 04:25 Neut # (Auto) 2.2 K/uL (1.8-7.0) 01/12/18 04:25 Lymph # (Auto) 2.7 K/uL (1.0-4.3) 01/12/18 04:25 Harper # (Auto) 0.4 K/uL (0.0-0.8) 01/12/18 04:25 Eos # (Auto) 0.1 K/uL (0.0-0.7) 01/12/18 04:25 Baso # (Auto) 0.0 K/uL (0.0-0.2) 01/12/18 04:25 PT 10.7 Seconds (9.8-13.1) 01/11/18 11:15 INR 1.0 (0.9-1.2) 01/11/18 11:15 APTT 26.5 Seconds (25.6-37.1) 01/11/18 11:15 Sodium 143 mmol/l (132-148) 01/12/18 04:25 Potassium 4.3 MMOL/L (3.6-5.0) 01/12/18 04:25 Chloride 107 mmol/L (98-107) 01/12/18 04:25 Carbon Dioxide 29 mmol/L (22-30) 01/12/18 04:25 Anion Gap 11 (10-20) 01/12/18 04:25 BUN 16 mg/dl (7-17) 01/12/18 04:25 Creatinine 0.6 mg/dl (0.7-1.2) L 01/12/18 04:25 Est GFR ( Amer) > 60 01/12/18 04:25 Est GFR (Non-Af Amer) > 60 01/12/18 04:25 POC Glucose (mg/dL) 96 mg/dL (65-110) 01/12/18 11:58 Random Glucose 97 mg/dL (65-105) 01/12/18 04:25 Hemoglobin A1c 6.2 % (4.2-6.5) 01/11/18 11:15 Calcium 8.7 mg/dL (8.4-10.2) 01/12/18 04:25 Total Bilirubin 0.5 mg/dl (0.2-1.3) 01/11/18 11:15 AST 40 U/L (14-36) H D 01/11/18 11:15 ALT 28 U/L (9-52) 01/11/18 11:15 Alkaline Phosphatase 61 U/L (38-126) 01/11/18 11:15 Troponin I < 0.0120 ng/mL (0.00-0.120) 01/11/18 11:15 Total Protein 7.1 G/DL (6.3-8.2) 01/11/18 11:15 Albumin 4.1 g/dL (3.5-5.0) 01/11/18 11:15 Globulin 3.1 gm/dL (2.2-3.9) 01/11/18 11:15 Albumin/Globulin Ratio 1.3 (1.0-2.1) 01/11/18 11:15 Triglycerides 139 mg/DL (0-149) D 01/11/18 11:15 Cholesterol 201 mg/dL (0-199) H 01/11/18 11:15 LDL Cholesterol Direct 115 mg/dL (0-129) 01/11/18 11:15 HDL Cholesterol 48 MG/DL (30-70) 01/11/18 11:15 TSH 3rd Generation 1.08 mIU/ML (0.46-4.68) 01/12/18 04:25 Blood Type AB POSITIVE 01/11/18 11:15 Antibody Screen Negative 01/11/18 11:15 BBK History Checked Patient has bt 01/11/18 11:15 - Hospital Course Hospital Course: 72 yo female with history of CVA 2yrs ago came in complaining of pain on the right lower back region radiating to the back of the right leg. Pain was on and off initiated when rising up from sitting position. There was also some mention of numbness associated with the pain but denied weakness. Over a year back, patient had CVA presenting with numbness of the left arm. CT scan of the head showed old chronic left MCA territory infarct and MRI of lumbar spine was significant for multilevel degenerative spondylosis. Dr Valerio, neurologist, was consulted and advised to start patient with Neurontin for possible neuropathic pain secondary to previous stroke or mild nerve root compression at the lumbar area. Patient was discharged in stable condition. Discharge Exam - Head Exam Head Exam: ATRAUMATIC, NORMAL INSPECTION, NORMOCEPHALIC - Eye Exam Eye Exam: absent: Scleral icterus - ENT Exam ENT Exam: Mucous Membranes Moist - Respiratory Exam Respiratory Exam: absent: Rhonchi, Wheezes, Respiratory Distress - Cardiovascular Exam Cardiovascular Exam: REGULAR RHYTHM - GI/Abdominal Exam GI & Abdominal Exam: Soft. absent: Tenderness - Rectal Exam Rectal Exam: Deferred - Neurological Exam Neurological exam: Alert, Oriented x3 - Psychiatric Exam Psychiatric exam: Normal Affect - Skin Skin Exam: Dry, Intact Discharge Plan - Discharge Medications Prescriptions: Gabapentin [Neurontin] 300 mg PO TID #42 cap - Follow Up Plan Condition: GOOD Disposition: HOME/ ROUTINE Instructions: Acute Low Back Pain (DC) Additional Instructions: follow up with in 2 weeks. follow with pmd in 1 week Referrals: Cody Valerio MD [Medical Doctor] - Rudy Mcnulty MD [Staff Provider] -
== END 2018-01-12 19:05 | disposition home or self-care (01) ==
LOC: H.ER 10:21 → H.ERHOLD 12:53 → H.ICU/CCU 16:15 → H.TEL 16:35
DX: M47.26 Other spondylosis with radiculopathy, lumbar region (principal); Z79.02 Long term (current) use of antithrombotics/antiplatelets; Z86.73 Personal history of transient ischemic attack (TIA), and cerebral infarction without residual deficits; D64.9 Anemia, unspecified; Z79.899 Other long term (current) drug therapy; M54.5 Low back pain; I10 Essential (primary) hypertension
CPT/HCPCS: 36415; 70450; 71045; 72158; 80048; 80053; 80061; 82948; 83036; 84443; 84484; 85025; 85610; 85730; 86850; 86900; 93005; 99285; A9579; G0378; J1650; J7040

== ENCOUNTER 2018-11-23 12:28 | Emergency (ER) | payer MEDICARE ==
[2018-11-23 12:28] VITALS: BMI 21.2
[2018-11-23 12:58] VITALS: RESP 16
[2018-11-23] MEDS ORDERED: Sodium Chloride 0.9% 1,000 ML IV STA (14:36)
[2018-11-23] MEDS ORDERED: Morphine 4 MG/ML VIAL IVP ONE (14:37)
--- NOTE | 2018-11-23 14:41 | ED PDOC ---
HPI: Abdomen Time Seen by Provider: 11/23/18 13:33 Chief Complaint (Nursing): Abdominal Pain Chief Complaint (Provider): Abdominal Pain History Per: Patient History/Exam Limitations: no limitations Onset/Duration Of Symptoms: Days (x3 days) Location Of Pain/Discomfort: LLQ Additional Complaint(s): Marta Yoo is a 73 year old female with a past medical history of CVA, Hypertension and anemia, who presents to the emergency department today complaining of left lower quadrant pain and left lower leg pain, onset x3 days. Patient states that she has also been vomiting, fevers and chill since onset. PMD: rudy mcnulty Past Medical History Reviewed: Historical Data, Nursing Documentation, Vital Signs Vital Signs: Last Vital Signs Temp 97.9 F 11/23/18 12:56 Pulse 86 11/23/18 12:56 Resp 16 11/23/18 12:56 BP 126/81 11/23/18 12:56 Pulse Ox 99 11/23/18 12:56 - Medical History PMH: Anemia, CVA (12/2015), HTN Denies: Chronic Kidney Disease - Surgical History Other surgeries: Right eye surgery, bladder surgery, valve closure - Family History Family History: States: Unknown Family Hx - Home Medications Home Medications: Ambulatory Orders Medication Instructions Recorded RX: Atorvastatin [Lipitor] 80 mg PO DAILY 01/19/17 RX: Clopidogrel [Plavix] 75 mg PO DAILY 01/19/17 RX: clonazePAM [Klonopin] 0.5 mg PO HS PRN 01/19/17 RX: PARoxetine [Paxil] 20 mg PO DAILY 09/15/17 RX: Acetaminophen with Codeine 1 tab PO Q6H PRN 01/11/18 [Tylenol with Codeine #3 Tablet] Gabapentin [Neurontin] 300 mg PO TID #42 cap 01/12/18 Ciprofloxacin [Cipro] 1 tab PO BID #20 tab 11/23/18 RX: Ibuprofen [Motrin Tab] 600 mg PO Q8 PRN #30 tab 11/23/18 RX: traMADol [Ultram] 50 mg PO TID PRN #15 tab 11/23/18 metroNIDAZOLE [Flagyl] 500 mg PO TID #30 tab 11/23/18 - Allergies Allergies/Adverse Reactions: Allergies Allergy/AdvReac Type Severity Reaction Status Date / Time No Known Allergies Allergy Verified 11/23/18 12:55 Review of Systems ROS Statement: Except As Marked, All Systems Reviewed And Found Negative Constitutional: Positive for: Fever, Chills Gastrointestinal: Positive for: Vomiting, Abdominal Pain Musculoskeletal: Positive for: Leg Pain (left) Physical Exam - Reviewed Nursing Documentation Reviewed: Yes Vital Signs Reviewed: Yes - Physical Exam Appears: Positive for: Non-toxic, No Acute Distress Head Exam: Positive for: ATRAUMATIC, NORMOCEPHALIC Skin: Positive for: Normal Color, Warm, Dry Eye Exam: Positive for: Normal appearance, EOMI, PERRL ENT: Positive for: Normal ENT Inspection Neck: Positive for: Normal, Painless ROM, Supple Cardiovascular/Chest: Positive for: Regular Rate, Rhythm. Negative for: Murmur Respiratory: Positive for: Normal Breath Sounds. Negative for: Respiratory Distress Gastrointestinal/Abdominal: Positive for: Tenderness (LLQ tenderness) Back: Positive for: Normal Inspection. Negative for: L CVA Tenderness, R CVA Tenderness, Vertebral Tenderness Extremity: Positive for: Normal ROM. Negative for: Pedal Edema, Deformity Neurologic/Psych: Positive for: Alert, Oriented - Laboratory Results Result Diagrams: 11/23/18 15:05 11/23/18 15:05 - ECG O2 Sat by Pulse Oximetry: 99 (RA) Pulse Ox Interpretation: Normal Medical Decision Making Medical Decision Making: Time: 1435 Impression: Abdominal pain, vomiting, fever Differential diagnosis includes but is not limited to diverticulitis and UTI Plan: --CT of abd/pelvis IV contrast only --CMP --Lipase --ED urine dipstick --CBC with differential --Morphine 2 mg IVP --Sodium chloride 1,000 ml --Zofran 4 mg IV Scribe Attestation: Documented by Roscoe Souza, acting as a scribe for Grover Aguilar MD. Provider Scribe Attestation: All medical record entries made by the Scribe were at my direction and personally dictated by me. I have reviewed the chart and agree that the record accurately reflects my personal performance of the history, physical exam, medical decision making, and the department course for this patient. I have also personally directed, reviewed, and agree with the discharge instructions and disposition. Disposition - Clinical Impression Clinical Impression: Abdominal pain - Patient ED Disposition Is Patient to be Admitted: Transfer of Care Counseled Patient/Family Regarding: Studies Performed, Diagnosis - Disposition Referrals: Rudy Mcnulty MD [Staff Provider] - 11/24/18 ([facility]CNULTY EN 24[facility] [place] Disposition: Transfer of Care Disposition Time: 15:00 Condition: STABLE Additional Instructions: REGRES SI SIENTE PEOR Prescriptions: Ciprofloxacin [Cipro] 1 tab PO BID #20 tab RX: Ibuprofen [Motrin Tab] 600 mg PO Q8 PRN #30 tab PRN Reason: Pain, Moderate (4-7) metroNIDAZOLE [Flagyl] 500 mg PO TID #30 tab RX: traMADol [Ultram] 50 mg PO TID PRN #15 tab PRN Reason: SEVERE PAIN ONLY Instructions: Acute Abdomen (Belly Pain), Adult (DC), Diverticulosis (DC) Print Language: MALAYSIAN
[2018-11-23 15:10] LABS: BASO # 0.1 K/uL (0.0-0.2); BASO % 0.9 % (0.0-2.0); EOS % 0.3 % (0.0-4.0); HEMOGLOBIN 11.9 g/dL (12.0-16.0); LYMPH # 1.6 K/uL (1.0-4.3); LYMPH % 22.1 % (20.0-40.0); MEAN CELL VOLUME 84.7 fl (81.0-99.0); MEAN CORPUSCULAR HEMOGLOBIN 28.4 pg (27.0-31.0); MEAN CORPUSCULAR HGB CONC 33.6 g/dL (33.0-37.0); MEAN PLATELET VOLUME 7.8 fl (7.2-11.7); MONO # 1.1 K/uL (0.0-0.8); MONO % 14.5 % (0.0-10.0); NEUT # 4.6 K/uL (1.8-7.0); NEUT % 62.2 % (50.0-75.0); RBC 4.17 Mil/uL (3.80-5.20); RED CELL DISTRIBUTION WIDTH 13.9 % (11.5-14.5); WHITE BLOOD COUNT 7.4 K/uL (4.8-10.8)
[2018-11-23 15:19] LABS: ALB/GLOB RATIO 1.1 (1.0-2.1); ALBUMIN 3.8 g/dL (3.5-5.0); BLOOD UREA NITROGEN 19 mg/dl (7-17); CALCIUM 8.7 mg/dL (8.4-10.2); GFR NON-AFRICAN AMERICAN > 60; LIPASE 52 U/L (23-300)
[2018-11-23 15:28] LABS: ALT/SGPT 30 U/L (9-52); AST/SGOT 31 U/L (14-36)
[2018-11-23] MEDS ORDERED: Iohexol 300 100 ML IJ ONE (16:07)
[2018-11-23] MEDS ORDERED: Sodium Chloride 0.9% 50 ML IV ONE (16:08)
--- NOTE | 2018-11-23 17:41 | CT ---
Date of service: 11/23/2018 PROCEDURE: CT Abdomen and Pelvis with contrast HISTORY: LLQ pain COMPARISON: 01/19/2017 TECHNIQUE: Contrast dose: 90 ML OMNIPAQUE 300 Radiation dose: Total exam DLP = 333.03 mGy-cm. This CT exam was performed using one or more of the following dose reduction techniques: Automated exposure control, adjustment of the mA and/or kV according to patient size, and/or use of iterative reconstruction technique. FINDINGS: LOWER THORAX: Unremarkable. LIVER: Normal size, contour and attenuation. 7 mm rounded low-attenuation lesion in the inferior right hepatic lobe, unchanged from prior examination. Possible cyst. No biliary dilatation. GALLBLADDER AND BILE DUCTS: Unremarkable. PANCREAS: Unremarkable. No gross lesion or ductal dilatation. SPLEEN: Unremarkable. ADRENALS: Unremarkable. No mass. KIDNEYS AND URETERS: Unremarkable. No hydronephrosis. No solid mass. VASCULATURE: Unremarkable. No aortic aneurysm. There is minimal atherosclerotic calcification of the abdominal aorta. BOWEL: Sigmoid diverticulosis without evidence of diverticulitis. No bowel obstruction. No other abnormal bowel loops are identified. APPENDIX: Normal appendix. PERITONEUM: Unremarkable. No free fluid. No free air. LYMPH NODES: Unremarkable. No enlarged lymph nodes. BLADDER: Suboptimally distended. No gross abnormality. REPRODUCTIVE: Normal postmenopausal uterus. BONES: No acute fracture. OTHER FINDINGS: None. IMPRESSION: No acute abnormality. Stable small rounded low-attenuation lesion in the right hepatic lobe. Sigmoid diverticulosis without evidence of diverticulitis. No other significant abnormality.
--- NOTE | 2018-11-23 17:52 | ED PDOC ---
- Laboratory Results Result Diagrams: 11/23/18 15:05 11/23/18 15:05 - ECG O2 Sat by Pulse Oximetry: 99 (RA) Medical Decision Making Medical Decision Making: Accession No. : [id number] Patient Name / ID : STARLA MAYER / [id number] Exam Date : 11/23/2018 16:12:46 ( Approved ) Study Comment : Sex / Age : F / 73Y Creator : Nhan Blount MD Dictator : Nhan Blount MD Supervisor [employer] : Publications Designer : Nhan Blount MD Approver2 : Report Date : 11/23/2018 17:37:44 My Comment : Date of service: 11/23/2018 PROCEDURE: CT Abdomen and Pelvis with contrast HISTORY: LLQ pain COMPARISON: 01/19/2017 TECHNIQUE: Contrast dose: 90 ML OMNIPAQUE 300 Radiation dose: Total exam DLP = 333.03 mGy-cm. This CT exam was performed using one or more of the following dose reduction techniques: Automated exposure control, adjustment of the mA and/or kV according to patient size, and/or use of iterative reconstruction technique. FINDINGS: LOWER THORAX: Unremarkable. LIVER: Normal size, contour and attenuation. 7 mm rounded low-attenuation lesion in the inferior right hepatic lobe, unchanged from prior examination. Possible cyst. No biliary dilatation. GALLBLADDER AND BILE DUCTS: Unremarkable. PANCREAS: Unremarkable. No gross lesion or ductal dilatation. SPLEEN: Unremarkable. ADRENALS: Unremarkable. No mass. KIDNEYS AND URETERS: Unremarkable. No hydronephrosis. No solid mass. VASCULATURE: Unremarkable. No aortic aneurysm. There is minimal atherosclerotic calcification of the abdominal aorta. BOWEL: Sigmoid diverticulosis without evidence of diverticulitis. No bowel obstruction. No other abnormal bowel loops are identified. APPENDIX: Normal appendix. PERITONEUM: Unremarkable. No free fluid. No free air. LYMPH NODES: Unremarkable. No enlarged lymph nodes. BLADDER: Suboptimally distended. No gross abnormality. REPRODUCTIVE: Normal postmenopausal uterus. BONES: No acute fracture. OTHER FINDINGS: None. IMPRESSION: No acute abnormality. Stable small rounded low-attenuation lesion in the right hepatic lobe. Sigmoid diverticulosis without evidence of diverticulitis. No other significant abnormality. Disposition - Clinical Impression Clinical Impression: Abdominal pain - POA Present On Arrival: None - Disposition Referrals: Rudy Mcnulty MD [Staff Provider] - 11/24/18 (VISITA DR MCNULTY EN 24-48 [facility]) Disposition: Routine/Home Disposition Time: 17:56 Condition: STABLE Additional Instructions: REGRES SI SIENTE PEOR Prescriptions: Ciprofloxacin [Cipro] 1 tab PO BID #20 tab Ibuprofen [Motrin Tab] 600 mg PO Q8 PRN #30 tab PRN Reason: Pain, Moderate (4-7) metroNIDAZOLE [Flagyl] 500 mg PO TID #30 tab traMADol [Ultram] 50 mg PO TID PRN #15 tab PRN Reason: SEVERE PAIN ONLY Instructions: Acute Abdomen (Belly Pain), Adult (DC), Diverticulosis (DC) Print Language: PERUVIAN
[2018-11-23 18:30] VITALS: BP 130/76; PULSE 71; TEMP 98
[2018-11-25 20:16] VITALS: O2SAT 99
== END 2018-11-23 18:15 | disposition home or self-care (01) ==
LOC: H.ER 12:28
DX: R10.32 Left lower quadrant pain (principal); K57.30 Diverticulosis of large intestine without perforation or abscess without bleeding; I10 Essential (primary) hypertension; Z86.73 Personal history of transient ischemic attack (TIA), and cerebral infarction without residual deficits; D64.9 Anemia, unspecified
CPT/HCPCS: 74177; 80053; 83690; 85025; 96374; 99284; J2270; J2405; J7030; Q9967